=== PATIENT | female | born 1965 | race Caucasian/White ===

== ENCOUNTER 2019-08-19 05:40 | Emergency (ER) | payer OTHER ==
[2019-08-19] MEDS ORDERED: HYDROcodone/Acetaminophen 5/325 mg Tablet ONE (06:29)
== END 2019-08-19 06:55 | disposition home or self-care (01) ==
LOC: ERS 05:40
DX: N20.0 Calculus of kidney (principal); N39.0 Urinary tract infection, site not specified; R11.0 Nausea; E03.9 Hypothyroidism, unspecified; I10 Essential (primary) hypertension; Z79.899 Other long term (current) drug therapy
CPT/HCPCS: 99283

== ENCOUNTER 2019-08-24 10:49 | Outpatient (CLI) | payer OTHER ==
[2019-08-24 12:13] LABS: Hemoglobin 12.3 g/dL (12.0-16.0); Mean Corpuscular HGB CONC 33.5 g/dL (32.0-36.0); Mean Corpuscular Volume 92.4 fL (78.0-98.0); Mean Platelet Volume 7.8 fL (7.4-10.4); Platelet Count 473 thou/uL (130-400); Red Blood Cell (RBC) Count 3.97 mill/uL (4.20-5.40); White Blood Cell (WBC) Count 18.3 thou/uL (4.8-10.8)
[2019-08-24 12:32] LABS: Anion Gap 16 mmol/L (10-20); BUN (Urea Nitrogen) 17 mg/dL (9.8-20.1); Calc. Creatinine Clearance 0 mL/min (70-130); Calcium 9.8 mg/dL (7.8-10.44); Carbon Dioxide 21 mmol/L (22-29); Chloride 102 mmol/L (98-107); Estimated GFR-MDRD 29; Glucose 101 mg/dL (70-105); Potassium 4.2 mmol/L (3.5-5.1); Sodium 135 mmol/L (136-145)
== END 2019-08-24 10:50 | disposition home or self-care (01) ==
LOC: LABBT 10:49
PROVIDERS: ATTEND Urology
DX: Z01.818 Encounter for other preprocedural examination (principal); N20.1 Calculus of ureter
CPT/HCPCS: 80048; 85027; 93005; 93010

== ENCOUNTER 2019-08-29 07:17 | Day surgery (SDC) | payer OTHER ==
[2019-08-24 10:21] VITALS: BMI 41.0
[2019-08-29] MEDS ORDERED: Levofloxacin 500 mg/D5W 100 ml Premix Bag ONE (08:24)
[2019-08-29] MEDS ORDERED: PROPOFOL 200 MG/20 ML VIAL ONE (09:54)
[2019-08-29] MEDS ORDERED: PHENYLEPHRINE-NS 100 MCG/ML 10 ML SYRINGE ONE (09:54)
[2019-08-29] MEDS ORDERED: Ondansetron PF 4 MG/2 ML Vial ONE (09:54)
[2019-08-29] MEDS ORDERED: Dexamethasone 20 MG/5 ML VIAL ONE (09:54)
[2019-08-29] MEDS ORDERED: Lidocaine 1% PF 5 ML VIAL ONE (09:54)
[2019-08-29] MEDS ORDERED: Iothalamate Meglumine 60% 50 ML VIAL FS ONE (12:00)
[2019-08-29] MEDS ORDERED: Fentanyl 100 MCG/2 ML VIAL ONE (12:16)
[2019-08-29] MEDS ORDERED: Phenazopyridine HCl 97.5 MG TABLET ONE ×2 (13:14)
[2019-08-29] MEDS ORDERED: Oxybutynin 5 MG TAB ONE (13:15)
[2019-08-29] MEDS ORDERED: Ketorolac Tromethamine 30 MG/ML VIAL ONE (13:15)
--- NOTE | 2019-08-29 14:06 | OP ---
DATE OF PROCEDURE: 08/29/2019 PREOPERATIVE DIAGNOSES: Left renal stones, possible left ureteral stone. POSTOPERATIVE DIAGNOSIS: Left renal stones. PROCEDURES PERFORMED: Left ureteroscopy with laser lithotripsy, a 6 x 26 double-J ureteral stent placement, retrograde pyelogram. ANESTHESIA: General. COMPLICATIONS: None. ESTIMATED BLOOD LOSS: None. SPECIMEN: None. DESCRIPTION OF PROCEDURE: After informed consent, the patient was taken to the operating room, transferred to the table under her own power. Anesthesia was established. A time-out was performed showing the correct patient, site, and procedure. Preoperative antibiotics were administered. She was prepped and draped in the lithotomy position. The semi-rigid ureteroscope was advanced through the urethra into the bladder noting no obvious abnormalities. The left ureteral orifice was entered and retrograde pyelogram performed showing good filling of the ureter without hydroureter or hydronephrosis. The wire was then passed into the renal pelvis and the scope withdrawn and reinserted alongside the wire all the way into the renal pelvis, noting no ureteral stones. The scope was then withdrawn and an access sheath placed over the wire into the proximal ureter under fluoroscopic guidance. The flexible ureteroscope was guided through this into the kidney, which was systematically examined noting two stones in the lower/mid pole calyces as seen on the CT scan. Both of the stones were dusted into very small pieces with a 273 micron laser fiber. At the completion of the case, the entire kidney was again reexamined noting no clinically significant stone fragments. The wire was replaced and the scope and access sheath withdrawn. A 6 x 26 double-J ureteral stent was placed over the wire with a curl in the kidney and curl in the bladder under fluoroscopic guidance. Completion images were taken. At this point, the case was complete. The patient was awoken from anesthesia, transferred back to her hospital bed and taken to PACU in stable condition, where she will be discharged home upon recovery. Job ID: [id number]
--- NOTE | 2019-08-29 14:34 | RAD ---
Exam: Intraoperative fluoroscopy for retrograde IVP HISTORY: Stent placement FINDINGS: Single intraoperative/intraprocedural fluoroscopic image demonstrates a left-sided double p igtail ureteral stent. Contrast opacifies the intrarenal collecting system. IMPRESSION: Intraoperative fluoroscopy as above.
== END 2019-08-29 15:36 | disposition home or self-care (01) ==
LOC: SDC 07:17
PROVIDERS: ATTEND Urology
PROC: 0TF48ZZ Fragmentation in Left Kidney Pelvis, Via Natural or Artificial Opening Endoscopic (ICD-10-PCS; principal; 2019-08-29)
PROC: 0T778DZ Dilation of Left Ureter with Intraluminal Device, Via Natural or Artificial Opening Endoscopic (ICD-10-PCS; principal; 2019-08-29)
DX: N20.0 Calculus of kidney (principal); I10 Essential (primary) hypertension; Z87.891 Personal history of nicotine dependence; Z79.1 Long term (current) use of non-steroidal anti-inflammatories (NSAID); Z79.2 Long term (current) use of antibiotics; Z79.899 Other long term (current) drug therapy; Z88.1 Allergy status to other antibiotic agents; Z88.2 Allergy status to sulfonamides
CPT/HCPCS: 74420; C1758; C1769; J1100; J1885; J1956; J2001; J2405; J2704; J3010

== ENCOUNTER 2020-01-05 13:58 | Outpatient (CLI) | payer OTHER ==
--- NOTE | 2020-01-05 14:54 | ULT ---
Renal sonogram HISTORY: Renal stones. FINDINGS: On today's exam, the right kidney measures up to 12.5 cm. Marked thinning of the cortex. No hydronephrosis. A 1.2 cm cyst is noted along the lateral cortex near the inferior pole. Diffuse thinning of the renal cortex. Left kidney measures up to 12.0 cm. Diffuse thinning of the cortex. There is a 1.2 cm cyst near the m idportion of the kidney. Urinary bladder is incompletely distended. Within the partially visualized uterus, the fundal portion of the endometrial cavity is slightly dist ended with fluid. IMPRESSION : Symmetric, diffuse renal cortical atrophy. No hydronephrosis. Stones not visualized on today's sonogr am. Small bilateral renal cysts. Incidental note of small amount of fluid within the upper endometrial cavity of the uterus.
== END 2020-01-05 13:59 | disposition home or self-care (01) ==
LOC: BICULT 13:58
PROVIDERS: ATTEND Urology
DX: N20.0 Calculus of kidney (principal); N28.1 Cyst of kidney, acquired; N26.1 Atrophy of kidney (terminal)
CPT/HCPCS: 76770

== ENCOUNTER 2020-03-14 09:06 | Outpatient (CLI) | payer OTHER ==
--- NOTE | 2020-03-14 14:29 | CT ---
ABDOMEN CT WITH CONTRAST PELVIC CT WITH CONTRAST: Date: 03/14/2020 HISTORY: Recently diagnosed with cervical cancer. COMPARISON: 08/19/[address] FINDINGS: ABDOMEN CT: There are nodules in the visualized lung parenchyma, worrisome for metastasis until proven otherwise. [employer] nodule is noted in the right lower lobe measuring 1.5 x 1.5 cm. There are no lytic or blastic lesions in the osseous structures. Heart size normal. No significant pericardial fluid. Visualized aorta has a normal caliber. No periaortic fat stranding. Patent portal vein. Multiple hypodensities in the liver measuring 0.7-0.9 cm. Lesions are too small to characterize. Spleen, pancreas, and adrenal glands have appropriate attenuation and enhancement. There is symmetric enhancement of the kidneys. Nonobstructing 3.0 mm calculus in the lower pole of th e right kidney. Bilaterally, no obstructive uropathy. There is a 1.0 hypodensity in the mid right armand al cortex which may represent a cyst. A smaller hypodensity is noted in the lower pole of the right k idney, measuring 0.5 cm. Hypodensity in the left renal cortex measures 0.7 cm. Nonobstructing intrapa renchymal calculus adjacent to the 0.7 cm hypodensity is noted. There are enlarged aortocaval and periaortic lymph nodes. Aortocaval lymph node measures 1.7 x 1.3 cm . Cluster of left periaortic lymph nodes measures 3.0 x 2.3 cm. There is no mesenteric free air or free fluid. There is abnormal hypoattenuation involving the anteri or left and right abdominal mesentery, worrisome for mesenteric carcinomatosis. Gastric mucosa, duodenum, and multiple normal caliber small bowel loops are identified. Normal ileoce precious junction. Normal caliber appendix is not appreciated. No inflammatory changes involving the cecal apex. Scattered fecal material in a nondistended, nondilated colon. CT PELVIS: Markedly enlarged heterogeneous uterus. There is nonspecific slightly complex fluid in the cul-de-sac . No pelvic free air. There is enlarged right external iliac lymph node measuring 2.8 x 1.3 cm. Addit ional right external iliac lymph nodes are identified. Urinary bladder has a normal appearance. No lytic or blastic lesions in the osseous structures. IMPRESSION: 1. Enlarged, heterogeneous uterus compatible with patient's history of cervical cancer with probable extension into the uterus. There are enlarged right external iliac, aortocaval, and periaortic lymph nodes. 2. Multiple lung parenchymal masses compatible with metastasis until proven otherwise. POS: SARAH
== END 2020-03-14 09:07 | disposition home or self-care (01) ==
LOC: BICCT 09:06
PROVIDERS: ATTEND Obstetrics & Gynecology
DX: C53.9 Malignant neoplasm of cervix uteri, unspecified (principal); N85.2 Hypertrophy of uterus; R59.0 Localized enlarged lymph nodes; R91.8 Other nonspecific abnormal finding of lung field
CPT/HCPCS: 74177

== ENCOUNTER 2020-03-15 14:58 | Outpatient (CLI) | payer OTHER ==
[~2020-03-15 14:58] MED LIST: Iopamidol 370 76% 100 ML VIAL ONE
--- NOTE | 2020-03-15 15:49 | CT ---
EXAM: CT of the chest with contrast HISTORY: Pulmonary nodules and cervical cancer COMPARISON: CT abdomen/pelvis 03/14/2020 TECHNIQUE: Multiple contiguous axial images were obtained in a CT the chest with contrast. Coronal an d sagittal reformats were performed. FINDINGS: HEART: Normal in size without focal cardiac abnormality MEDIASTINUM: Enlarged prevascular lymph nodes are seen measuring up to 1.9 cm in size. Smaller but ro und lymph nodes are also seen scattered throughout the majority of the mediastinum. LUNGS: There are too numerous to count pulmonary nodules scattered throughout the lungs measuring up to 1.6 cm in size consistent with cannonball metastases. PLEURAL SPACE: No pneumothorax or pleural effusion. CHEST WALL SOFT TISSUES: Unremarkable OSSEOUS STRUCTURES: No acute abnormality. VISUALIZED SUBDIAPHRAGMATIC STRUCTURES: See dedicated CT abdomen/pelvis from 03/14/2020 for findings b elow the diaphragm. IMPRESSION: 1. Diffuse pulmonary cannonball metastases 2. Enlarged mediastinal lymph nodes are likely secondary to metastatic disease.
== END 2020-03-15 14:59 | disposition home or self-care (01) ==
LOC: BICCT 14:58
PROVIDERS: ATTEND Internal Medicine Hematology & Oncology
DX: C53.8 Malignant neoplasm of overlapping sites of cervix uteri (principal); C78.00 Secondary malignant neoplasm of unspecified lung; R59.0 Localized enlarged lymph nodes
CPT/HCPCS: 71260; Q9967

== ENCOUNTER 2020-03-19 09:51 | Outpatient (CLI) | payer OTHER ==
--- NOTE | 2020-03-19 12:49 | PET ---
Nuclear medicine FDG PET/CT: (Positron emission tomography and computed tomography) DATE: 03/19/2020 HISTORY: 54-year-old female with metastatic cervical cancer. Initial staging. ICD-10: C 53.8 COMPARISON: none TECHNIQUE: IV injection of F-18 fluorodeoxyglucose (FDG) dose: 11.8 mCi. PET scan and attenuation correction CT performed from skull base to proximal thighs. FINDINGS: SUV (standard uptake values) numbers given are maximum SUVs. QCLR used. There are numerous pulmonary nodules in the bilateral upper lobes and lower lobes. One of the larger 1's is a 1.5 x 1.4 cm one at posterior basilar segment of right lower lobe, with ARZATE V of 5.9. A 1.7 x 1.5 cm nodule in the superior segment of right lower lobe has SUV of 9.1. A 1 x 0.7 cm nodule at apical segment left upper lobe SUV of 6.7. A 1.3 x 0.9 cm nodule in the lingula has SUV of 3.4. In the neck, a 0.9 x 0.8 cm left level 4 lymph node has SUV of 5.1. Slightly inferior and lateral to that, a 0.5 x 0.7 cm left supraclavicular level 4 lymph node has SUV of 6.3. Prevascular space left upper mediastinal 1.2 x 1.2 cm lymph node SUV 5.8. Multiple mildly and moderately enlarged periaortic metastatic lymph nodes. For example, a right upper para-aortic 1.8 x 1.5 cm lymph node has SUV of 9.8. Left para-aortic lymph nodes have SUV up to 6.9. There are multiple extraluminal intraperitoneal masses representing intraperitoneal metastatic spread . For example, in the right lower quadrant anterior peritoneal cavity mass 3.2 x 2.2 cm has SUV of 15.5 . More superiorly in the right mid abdomen, a smaller intracranial mass has SUV 12.5. At the same level in the contralateral left anterior mid peritoneal cavity, there is a similar such p erineal mass with SUV of 11.6. There are multiple mildly and moderately enlarged bilateral metastatic iliac chain lymph nodes. For example, a right external iliac chain 2.5 x 1.5 cm node has SUV of 8.8. A 1 x 1.5 cm right internal iliac chain node has SUV 7.5. A 0.9 x 0.9 cm left external iliac chain node has of 7.5. A 1.5 x 0.9 cm right inguinal lymph node has SUV of 5.5. The enlarged uterus is inseparable from bilateral contiguous large parametrial confluent masses. The entire uterus-parametrial mass complex has severely increased uptake with SUV of 42.4. There is a n 8 x 3.5 x 3.5 cm fluid-filled smoothly circumscribed midline cystic structure between the enlarged uterus and the L5-S1 vertebral junction. It is uncertain whether this represents a posterior ly displaced urinary bladder or a cystic tumor component. It is not hypermetabolic. No convincing evidence of skeletal metastasis. IMPRESSION: 1) large uterine-bilateral parametrial complex mass representing malignant neoplastic tumor has extr ralph high SUV of 42.4. 2) widespread metastatic disease 3) metastatic bilateral iliac chain and retroperitoneal lymphadenopathy. 4) metastatic retroperitoneal lymphadenopathy. 5) intraperitoneal metastatic spread of malignancy. 6) numerous bilateral pulmonary metastases. 7) mild left supraclavicular cervical malignant ascites or lymphadenopathy. 8) probable single left mediastinal metastatic lymphadenopathy.
== END 2020-03-19 09:52 | disposition home or self-care (01) ==
LOC: PET 09:51
PROVIDERS: ATTEND Internal Medicine Hematology & Oncology
DX: C53.9 Malignant neoplasm of cervix uteri, unspecified (principal); N85.8 Other specified noninflammatory disorders of uterus; C77.2 Secondary and unspecified malignant neoplasm of intra-abdominal lymph nodes; C78.02 Secondary malignant neoplasm of left lung; C78.01 Secondary malignant neoplasm of right lung
CPT/HCPCS: 78815; A9552

== ENCOUNTER 2020-05-21 09:44 | Outpatient (CLI) | payer OTHER ==
--- NOTE | 2020-05-21 13:54 | PET ---
PET CT: 05/21/20 HISTORY: 54-year-old female with malignant neoplasm of overlapping sites of cervix. Metastatic squamous cell c ervical cancer. The patient is currently undergoing chemotherapy. Exam is requested to evaluate treat ment response and planned subsequent therapy. TECHNIQUE: PET scan with CT attenuation was performed from the base of the brain through the proximal thighs fol lowing the intravenous administration of 11 millicuries of 15-fluorodeoxyglucose in the right hand. COMPARISON: 03/19/20. FINDINGS: There has been interval resolution of the hypermetabolic lymph nodes in the neck, chest, abdomen and pelvis. Hypermetabolic activity in the pulmonary nodules and in the omental metastases since the last exam. No heladio hypermetabolism is seen in the neck, chest, abdomen or pelvis. No hypermetabolic pulmonary n odules, liver, adrenal, or skeletal lesions identified on the current exam. There is physiologic activity in the GI and tracts and visualized portions of the brain. The CT scan used for attenuation demonstrates no evidence of pleural or pericardial effusions, or asc ites. There are nonobstructing bilateral renal calculi. IMPRESSION: Complete response to therapy. No evidence of residual metastatic disease. POS: SAMA
== END 2020-05-21 09:45 | disposition home or self-care (01) ==
LOC: PET 09:44
PROVIDERS: ATTEND Internal Medicine Hematology & Oncology
DX: C53.8 Malignant neoplasm of overlapping sites of cervix uteri (principal); C79.89 Secondary malignant neoplasm of other specified sites; C78.00 Secondary malignant neoplasm of unspecified lung
CPT/HCPCS: 78815; A9552

== ENCOUNTER 2020-08-06 08:59 | Outpatient (CLI) | payer OTHER ==
--- NOTE | 2020-08-06 11:18 | PET ---
Nuclear medicine FDG PET/CT: (Positron emission tomography and computed tomography) DATE: 08/06/2020 HISTORY: 54 year old female. Metastatic cervical cancer. Evaluate response to treatment. Malignant neoplasm of overlapping sites of cervix. COMPARISON: 05/21/2020 TECHNIQUE: IV injection of F-18 fluorodeoxyglucose (FDG) dose: 11.7 mCi. PET scan and attenuation correction CT performed from skull base to proximal thighs. FINDINGS: SUV (standard uptake values) numbers given are maximum SUVs. QCLR used. Nondiagnostic attenuation correction CT images demonstrate no consolidation or pleural effusion. Again noted are the few small bilateral renal calculi. There is no suspicious FDG avid hypermetabolic activity in the neck, chest, abdomen, or pelvis, or in the skeleton. There has been no significant interval change. IMPRESSION: 1) negative. No evidence of recurrent or metastatic hypermetabolic neoplastic activity. 2) bilateral nephrolithiasis
== END 2020-08-06 09:00 | disposition home or self-care (01) ==
LOC: PET 08:59
PROVIDERS: ATTEND Internal Medicine Hematology & Oncology
DX: C53.8 Malignant neoplasm of overlapping sites of cervix uteri (principal); C79.89 Secondary malignant neoplasm of other specified sites; C78.00 Secondary malignant neoplasm of unspecified lung; N20.0 Calculus of kidney
CPT/HCPCS: 78815; A9552